=== PATIENT | male | born 1955 | race Caucasian/White ===

== ENCOUNTER 2021-05-21 17:30 | Observation (INO) ==
[2021-05-21 18:00] LABS: Basophils % 0.3 %; Eosinophils % 0.1 %; Hematocrit 50.1 % (37.5-50.1); Immature Granulocytes % 0.5 % (0-4); Lymphocytes # 1.4 K/mcL (0.6-4.6); Lymphocytes % 12.8 %; Mean Corpuscular HGB Conc 33.9 g/dL (31.6-35.5); Mean Corpuscular Hemoglobin 30.8 pg (28.0-33.3); Mean Corpuscular Volume 90.8 fL (83.0-100.0); Mean Platelet Volume 11.6 fL (9.4-12.4); Monocytes # 0.8 K/mcL (0.0-1.3); Monocytes % 6.9 %; Neutrophils # 8.7 K/mcL (1.6-8.9); Platelet Count 232 K/mcL (140-400); Red Blood Count 5.52 M/mcL (4.19-5.50); Red Cell Distribution Width 13.5 % (11.5-14.5); Segmented Neutrophils % 79.4 %
[2021-05-21 18:14] LABS: Alanine Aminotransferase 19 Units/L (7-52); Albumin 3.9 g/dL (3.5-5.7); Albumin/Globulin Ratio 1.6 (1.1-2.2); Alkaline Phosphatase 38 Units/L (34-104); Aspartate Amino Transferase 22 Units/L (13-39); BUN/Creatinine Ratio 28 (6-26); Bilirubin,Direct 0.3 mg/dL (0.0-0.2); Bilirubin,Indirect 1.2 mg/dL (0.0-1.0); Bilirubin,Total 1.5 mg/dL (0.3-1.0); Blood Urea Nitrogen 30 mg/dL (8-23); Calcium 9.1 mg/dL (8.6-10.3); Carbon Dioxide 24 mEq/L (23-29); Chloride 103 mEq/L (98-107); Ethanol < 10 mg/dL (Less than 10); Globulin 2.5 g/dL (2.4-3.5); Glucose 141 mg/dL (70-105); Osmolality,Calculated 291 (280-300); Potassium 3.4 mEq/L (3.5-5.1); Sodium 136 mEq/L (136-145); Total Protein 6.4 g/dL (6.4-8.9); eGFR For African Americans > 60 (> 60); eGFR For Non-African Americans > 60 (> 60)
[2021-05-21 18:21] LABS: Bilirubin,Urine Negative (Negative); Blood,Urine Negative (Negative); Clarity,Urine Clear (Clear); Color,Urine Yellow (Yellow); Glucose,Urine (UA) Normal (Normal); Ketones,Urine Negative (Negative); Leukocyte Esterase,Urine Negative (Negative); Nitrite,Urine Negative (Negative); PH,Urine 6.5 pH Units (5.0-8.0); Protein,Urine Trace mg/dL (Neg-Trace); Specific Gravity,Urine 1.017 (1.010-1.025); Urobilinogen,Urine Normal (Normal)
[2021-05-21 18:33] LABS: Amphetamine Screen,Urine Negative ng/mL (Cutoff=1000); Barbiturate Screen,Urine Negative ng/mL (Cutoff=200); Benzodiazepines Screen,Urine Negative ng/mL (Cutoff=200); Cannabinoid Screen,Urine Positive ng/mL (Cutoff = 50); Cocaine Screen,Urine Negative ng/mL (Cutoff= 300); Opiate Screen,Urine Negative ng/mL (Cutoff=300); Phencyclidine Screen,Urine Negative ng/mL (Cutoff=25)
[2021-05-21 19:32] LABS: Acetaminophen < 10 mcg/mL (10-20)
[2021-05-21] MEDS ORDERED: Ondansetron 4 MG/2 ML VIAL IVP PRN (19:53)
[2021-05-21] MEDS ORDERED: Naloxone 0.4 MG/ML INJ IVP PRN (19:53)
[2021-05-21] MEDS ORDERED: Acetaminophen 325 MG TABLET PO PRN (19:53)
[2021-05-21] MEDS ORDERED: Ipratropium/Albuterol Neb 3 ML IH PRN (19:57)
[2021-05-21] MEDS ORDERED: Doxycycline 100 MG CAPSULE PO ONE (20:08)
[2021-05-21] MEDS: Ipratropium/Albuterol Neb 3 ML IH SCH ×2 (20:18→23:10)
[2021-05-21 20:23] LABS: Troponin I < 0.03 ng/mL (< 0.04)
[2021-05-22 02:53] LABS: Basophils # 0.1 K/mcL (0.0-0.2); Basophils % 0.4 %; Eosinophils # 0.1 K/mcL (0.0-0.6); Hematocrit 49.5 % (37.5-50.1); Hemoglobin 17.2 g/dL (12.9-16.9); Immature Granulocytes % 0.4 % (0-4); Lymphocytes % 26.8 %; Mean Corpuscular HGB Conc 34.7 g/dL (31.6-35.5); Mean Corpuscular Hemoglobin 31.4 pg (28.0-33.3); Mean Corpuscular Volume 90.5 fL (83.0-100.0); Mean Platelet Volume 11.9 fL (9.4-12.4); Monocytes % 9.1 %; Neutrophils # 6.9 K/mcL (1.6-8.9); Platelet Count 204 K/mcL (140-400); Red Blood Count 5.47 M/mcL (4.19-5.50); Red Cell Distribution Width 13.6 % (11.5-14.5); Segmented Neutrophils % 62.3 %; White Blood Count 11.1 K/mcL (4.3-11.1)
[2021-05-22 03:00] LABS: INR 1.1; Prothrombin Time 12.2 Seconds (9.4-12.1)
[2021-05-22] MEDS: Ipratropium/Albuterol Neb 3 ML IH SCH ×3 (03:24→11:14)
[2021-05-22 03:44] LABS: BUN/Creatinine Ratio 27 (6-26); Blood Urea Nitrogen 28 mg/dL (8-23); Carbon Dioxide 21 mEq/L (23-29); Chloride 105 mEq/L (98-107); Glucose 127 mg/dL (70-105); Magnesium 1.8 mg/dL (1.6-2.6); Osmolality,Calculated 291 (280-300); Sodium 137 mEq/L (136-145); Thyroid Stimulating Hormone 2.052 mcIU/mL (0.340-5.600); eGFR For African Americans > 60 (> 60); eGFR For Non-African Americans > 60 (> 60)
[2021-05-22] MEDS ORDERED: *HR* Enoxaparin 30 MG/0.3 ML SYRINGE SQ SCH (09:00)
[2021-05-22] MEDS ORDERED: Doxycycline 100 MG CAPSULE PO SCH (09:00)
[2021-05-22] MEDS ORDERED: predniSONE 20 MG TABLET PO SCH (09:00)
[2021-05-22 10:25] VITALS: BP 130/71
[2021-05-22] MEDS ORDERED: Furosemide 40 MG TABLET PO SCH (11:00)
[2021-05-22] MEDS ORDERED: atenoloL 50 MG TABLET PO SCH (11:00)
[2021-05-22] MEDS ORDERED: Losartan/HCTZ 50-12.5 TABLET PO SCH (12:00)
[2021-05-22] MEDS ORDERED: Gabapentin 300 MG CAPSULE PO SCH (12:00)
== END 2021-05-22 12:09 | disposition home or self-care (01) ==
LOC: EDBD → EMEROOARM 17:30 → 3ANU 17:30
PROVIDERS: ADMIT Internal Medicine; ATTEND Internal Medicine